=== PATIENT | female | born 1980 | race Caucasian/White ===

== ENCOUNTER → 2021-02-24 12:50 | Outpatient (BNVA) | payer OTHER, MEDICAID, SELFPAY | PROVIDERS: Family Provider Family Medicine; PCP Family Medicine; Visit Provider Counselor Professional | DX: F43.21 Adjustment disorder with depressed mood (principal) | CPT/HCPCS: 90834 ==

== ENCOUNTER → 2021-03-24 12:55 | Outpatient (BNVA) | payer OTHER, MEDICAID, SELFPAY | PROVIDERS: Family Provider Family Medicine; PCP Family Medicine; Visit Provider Counselor Professional | DX: F43.21 Adjustment disorder with depressed mood (principal) | CPT/HCPCS: 90834 ==

== ENCOUNTER → 2021-04-28 12:50 | Outpatient (BNVA) | payer OTHER, SELFPAY | PROVIDERS: Family Provider Family Medicine; PCP Family Medicine; Visit Provider Counselor Professional | DX: F43.21 Adjustment disorder with depressed mood (principal) | CPT/HCPCS: 90834 ==

== ENCOUNTER → 2021-07-24 12:54 | Outpatient (BNVA) | payer OTHER, MEDICAID, SELFPAY | PROVIDERS: Family Provider Family Medicine; PCP Family Medicine; Visit Provider Counselor Professional | DX: F43.21 Adjustment disorder with depressed mood (principal) | CPT/HCPCS: 90834 ==

== ENCOUNTER → 2021-08-25 12:56 | Outpatient (BNVA) | payer OTHER, MEDICAID, SELFPAY | PROVIDERS: Family Provider Family Medicine; PCP Family Medicine; Visit Provider Counselor Professional | DX: F43.21 Adjustment disorder with depressed mood (principal) | CPT/HCPCS: 90832 ==

== ENCOUNTER → 2021-09-29 15:57 | Outpatient (BNVA) | payer OTHER, MEDICAID, SELFPAY | PROVIDERS: Family Provider Family Medicine; PCP Family Medicine; Visit Provider Counselor Professional | DX: F43.21 Adjustment disorder with depressed mood (principal) | CPT/HCPCS: 90834 ==

== ENCOUNTER → 2021-11-03 12:53 | Outpatient (BNVA) | payer OTHER, MEDICAID, SELFPAY | PROVIDERS: Family Provider Family Medicine; PCP Family Medicine; Visit Provider Counselor Professional | DX: F43.21 Adjustment disorder with depressed mood (principal) | CPT/HCPCS: 90834 ==